=== PATIENT | female | born 1995 | race Two or more races ===

== ENCOUNTER 2020-07-05 10:49 | Emergency (ER) | payer SELFPAY ==
[~2020-07-05] VITALS: Ht 165.1 cm; Wt 61.2 kg
[2020-07-05 11:21] VITALS: BP 140/86
[2020-07-05 11:31] LABS: BASOPHILS % (AUTO) 0.6 % (0.0-2.0); HEMATOCRIT 29.4 % (37.0-47.0); LYMPHOCYTES % (AUTO) 10.7 % (20.0-45.0); MEAN CORPUSCULAR VOLUME 78 FL (80-99); MONOCYTES % (AUTO) 5.9 % (1.0-10.0); NEUTROPHILS % (AUTO) 82.8 % (45.0-75.0); PLATELET COUNT 295 K/UL (150-450); RED BLOOD COUNT 3.79 M/UL (4.20-5.40); RED CELL DISTRIBUTION WIDTH 14.8 % (11.6-14.8); WHITE BLOOD COUNT 9.8 K/UL (4.8-10.8)
[2020-07-05 11:37] LABS: ANION GAP 17 mmol/L (5-15); BLOOD UREA NITROGEN 12 mg/dL (7-18); CALCIUM 7.1 MG/DL (8.5-10.1); CARBON DIOXIDE 15 MMOL/L (21-32); CHLORIDE 114 MMOL/L (98-107); CREATININE 0.5 MG/DL (0.55-1.30); POTASSIUM 2.9 MMOL/L (3.5-5.1); SODIUM 146 MMOL/L (136-145)
[2020-07-05 11:42] LABS: ALANINE AMINOTRANSFERASE 9 U/L (12-78); ALBUMIN 2.5 G/DL (3.4-5.0); ALBUMIN/GLOBULIN RATIO 0.8 (1.0-2.7); ALKALINE PHOSPHATASE 34 U/L (46-116); ASPARTATE AMINO TRANSFERASE 18 U/L (15-37); BILIRUBIN,TOTAL 0.4 MG/DL (0.2-1.0)
[2020-07-05 12:30] VITALS: BP 134/88
[2020-07-05] MEDS ORDERED: Tranexamic Acid 500 MG in NS 55 ML IVPB ONE (12:45)
--- NOTE | 2020-07-05 12:51 | Emergency Room Report ---
History of Present Illness General Chief Complaint: Vaginal Source: Patient, EMS Present Illness HPI Female of unknown age and unknown name here with severe vaginal bleeding. A family member called paramedics because the patient started having severe vaginal bleeding today. No history is known about the patient as she is too obtunded and confused to answer questions properly. Cannot provide name or age. She has a gravid abdomen but is unable to give information regarding status. Patient is actively having severe vaginal bleeding in the emergency department. Allergies: Coded Allergies: UNABLE TO ASSESS (Unverified , 07/05/20) COVID-19 Screening Contact w/high risk pt: No Experienced COVID-19 symptoms?: No COVID-19 Testing performed [employer]: No Patient History Last Menstrual Period: unk Nursing Documentation-PMH Past Medical History Deferred: Pt Cognitively Impaired Review of Systems All Other Systems: negative except mentioned in HPI Physical Exam Vital Signs Date Time Temp Pulse Resp B/P (MAP) Pulse Ox O2 Delivery O2 Flow Rate FiO2 07/05/20 10:49 97.3 120 18 109/60 (76) 97 Room Air Sp02 EP Interpretation: reviewed, normal General Appearance: other - Obtunded, confused, swinging fists at staff and try to get up out of bed. Pale. In acute distress Head: normocephalic, atraumatic Eyes: bilateral eye normal inspection, bilateral eye PERRL ENT: hearing grossly normal, normal pharynx, no angioedema Neck: full range of motion, supple/symm/no masses Respiratory: chest non-tender, lungs clear, normal breath sounds, speaking full sentences Cardiovascular #1: no edema, other - Tachycardic, regular rhythm Gastrointestinal: normal bowel sounds, other - Slightly gravid abdomen. Abdomen largely nontender Rectal: deferred Genitourinary: other - Active large amounts of vaginal bleeding. Other brown examination is obscured by large amount of blood Musculoskeletal: back normal, normal range of motion, calf tenderness, gait/ station normal, non-tender Neurologic: other - Obtunded, confused, non-purposefully moving all extremities but unable to participate in physical examination Psychiatric: other Reflexes: 3+ bicep (R), 3+ bicep (L), 3+ tricep (R), 3+ tricep (L), 3+ knee (R) , 3+ knee (L) Lymphatic: no adenopathy Medical Decision Making Diagnostic Impression: Primary Impression: Vaginal bleeding Additional Impressions: Hemorrhagic shock Bleeding in early Altered mental status Anemia ER Course Total critical care time: Approximately 60 minutes Due to a high probability of clinically significant, life threatening deterioration, the patient required the highest level of preparedness to intervene emergently and I personally spent this critical care time directly and personally managing the patient. This critical care time included obtaining a history, examining the patient, pulse oximetry, ordering and reviewing studies , ordering treatments, evaluating response to treatment and updating management plan as needed, frequent reassessment and discussion with other providers as well as arranging for ultimate disposition. This critical to care time was performed to assess and manage the high probability of life-threatening deterioration that could result in multiorgan failure. This critical care time is separate from the separately billable procedures and treating other patients. Laboratory Tests Test 07/05/20 10:50 White Blood Count 9.8 K/UL (4.8-10.8) Red Blood Count 3.79 M/UL (4.20-5.40) L Hemoglobin 9.0 G/DL (12.0-16.0) L Hematocrit 29.4 % (37.0-47.0) L Mean Corpuscular Volume 78 FL (80-99) L Mean Corpuscular Hemoglobin 23.8 PG (27.0-31.0) L Mean Corpuscular Hemoglobin Concent 30.6 G/DL (32.0-36.0) L Red Cell Distribution Width 14.8 % (11.6-14.8) Platelet Count 295 K/UL (150-450) Mean Platelet Volume 7.4 FL (6.5-10.1) Neutrophils (%) (Auto) 82.8 % (45.0-75.0) H Lymphocytes (%) (Auto) 10.7 % (20.0-45.0) L Monocytes (%) (Auto) 5.9 % (1.0-10.0) Eosinophils (%) (Auto) 0.0 % (0.0-3.0) Basophils (%) (Auto) 0.6 % (0.0-2.0) Prothrombin Time 11.0 SEC (9.30-11.50) Prothrombin Time INR 1.0 (0.9-1.1) Activated Partial Thromboplast Time 22 SEC (23-33) L Sodium Level 146 MMOL/L (136-145) H Potassium Level 2.9 MMOL/L (3.5-5.1) L Chloride Level 114 MMOL/L (98-107) H Carbon Dioxide Level 15 MMOL/L (21-32) L Anion Gap 17 mmol/L (5-15) H Blood Urea Nitrogen 12 mg/dL (7-18) Creatinine 0.5 MG/DL (0.55-1.30) L Estimated Glomerular Filtration Rate > 60 mL/min (>60) Glucose Level 73 MG/DL (74-106) L Calcium Level 7.1 MG/DL (8.5-10.1) L Total Bilirubin 0.4 MG/DL (0.2-1.0) Aspartate Amino Transferase (AST) 18 U/L (15-37) Alanine Aminotransferase (ALT) 9 U/L (12-78) L Alkaline Phosphatase 34 U/L (46-116) L Total Protein 5.5 G/DL (6.4-8.2) L Albumin 2.5 G/DL (3.4-5.0) L Globulin 3.0 g/dL Albumin/Globulin Ratio 0.8 (1.0-2.7) L Microbiology Date/Time Source Procedure Growth Status 07/05/20 10:50 Nasopharynx SARS-CoV-2 RdRp Gene Assay - Final Complete Female of unknown age and unknown name here with altered mental status and severe vaginal bleeding. Patient appeared to be in hemorrhagic shock. She was having active large amounts of vaginal bleeding on arrival. She is obtunded, confused, clearly altered and attempting to get out of bed. Unable to answer questions in a meaningful fashion. She had active bleeding and was immediately started on O- blood transfusion boluses. She was given 2 units of packed red blood cells in the emergency department. Given 1 g of tranexamic acid. [employer] was emergently called. Patient was evaluated with the [employer] attending physician with ultrasound at the bedside. Patient appeared to have a 17-week intrauterine with a heartbeat that was ranging from 130 to 170 bpm. Per [employer] this was a nonviable that will likely require dilation and curettage or dilation and extraction. I spoke with [facility] and mixed signal design engineer physician Dr. Dugan who agreed to be accepting physician for an ER to ER transport. Patient's vital signs were improved with fluids and blood, however due to the critical nature of her condition she will need 911 transport with lights and sirens. Last Vital Signs Date Time Temp Pulse Resp B/P (MAP) Pulse Ox O2 Delivery O2 Flow Rate FiO2 07/05/20 12:45 98.1 115 15 07/05/20 12:30 134/88 99 Room Air Condition: Critical Referrals: NOT CHOSEN IPA/,REFERRING (PCP) Arnulfo Tobar M.D. Jul 05, 2020 12:51
[2020-07-05 13:06] VITALS: BP 142/90
--- NOTE | 2020-07-05 13:29 | Diagnostic Imaging Report ---
EXAM: US Pelvis Transabdominal and Transvaginal, Complete CLINICAL HISTORY: BLD TECHNIQUE: Real-time complete transabdominal and transvaginal pelvic ultrasound with image documentation. Transvaginal imaging was used for better evaluation of the endometrium and adnexa. COMPARISON: None FINDINGS: Uterus/cervix: Cervix is open. Opening measuring approximately 2 -4 cm. Very low amniotic fluid, which is mostly in the cervix and vaginal canal. Normal endometrial stripe thickness. No myometrial mass. Right ovary: Unremarkable. No mass. Normal blood flow. Left ovary: Unremarkable. No mass. Normal blood flow. Free fluid: No free fluid. Bladder: Unremarkable as visualized. Wall is normal thickness for degree of distention. Other findings: Fetus appears to be within the cervix, entering the vaginal canal. Variable heart rate measuring 138 - 173 bpm. According to femur length, ultrasound age is 17 weeks 1 day. IMPRESSION: 1. Fetus appears to be within the cervix, entering the vaginal canal. Variable heart rate measuring 138 - 173 bpm. 2. Cervix is open. Opening measuring approximately 2 -4 cm. <MYCVCSECTION> Communications: 07/05/20 13:32 Call Doctor Regarding Other, called Dr Tobar on 07/05 13: 32 (-07:00)
[2020-07-05 13:30] VITALS: BP 130/64
[2020-07-05 13:51] VITALS: BP 130/64
--- NOTE | 2020-07-05 18:44 | Consultation ---
DATE OF CONSULTATION: 07/05/2020 CONSULTING PHYSICIAN: Dario Virk MD. HISTORY OF PRESENT ILLNESS: This is supposedly a 24-year-old female who was brought in by the paramedics to the emergency room at [facility] after being from [facility] with history of vaginal bleeding. Patient is in altered mental status, unable to get any information in terms of her name or any history. Patient noted to have bleeding per vagina. PAST MEDICAL HISTORY: Unaware. PAST SURGICAL HISTORY: Unaware. OBSTETRICAL HISTORY: Unaware. GYNECOLOGICAL HISTORY: Unaware. PHYSICAL EXAMINATION: VITAL SIGNS: On presentation, vital signs noted to be stable. CARDIOVASCULAR: Regular rate and rhythm. LUNGS: Clear to auscultation. ABDOMEN: Soft. PELVIC: Patient was combative, difficult to do a pelvic examination however there was blood coming from vagina. DIAGNOSTIC DATA: A bedside ultrasound done by stenographer revealed approximately 17 weeks with a heart tone. ASSESSMENT: At this time is 17 weeks gestation by ultrasound. Patient with history of altered mental status, unable to obtain any history. At this time, [facility] does not have aminities to take care of this patient. This patient needs to be transferred to a tertiary center. I have conveyed this to the charge nurse as well as emergency room . They are in the process of transferring the patient to tertiary center. Thank you for the consultation. Dario Virk M.D. DR: Dane JOB#: [id number] CC:
== END 2020-07-05 13:50 | disposition short-term general hospital (02) ==
LOC: EDBD 10:49 → EMR 11:47
DX: O46.92 Antepartum hemorrhage, unspecified, second trimester (principal); O26.892 Other specified pregnancy related conditions, second trimester; O99.012 Anemia complicating pregnancy, second trimester; Z3A.17 17 weeks gestation of pregnancy; R57.8 Other shock; R00.0 Tachycardia, unspecified
CPT/HCPCS: 36415; 36430; 76817; 80053; 85025; 85610; 85730; 86850; 86900; 86901; 86920; 87081; 96361; 96365; 99291; J7030; P9016; U0002